=== PATIENT | male | born 1955 | race African-American/Black ===

== ENCOUNTER 2017-10-10 15:14 | Emergency (ER) | payer MEDICARE, MEDICAID ==
[~2017-10-10] VITALS: Ht 175.3 cm; Wt 74.0 kg
[~2017-10-10 15:14] MED LIST: ALLO100T PO; AMLO1CAP59 PO; ATOR20TA PO; KETO-23 PO; NORCO10T PO; TRAZ-91 PO
[2017-10-10 15:18] VITALS: BP 153/104
[2017-10-10] MEDS ORDERED: ibuprofen tablet 400 MG TABLET PO ONE (15:45)
== END 2017-10-10 16:00 | disposition home or self-care (01) ==
LOC: ER 15:14
DX: H92.02 Otalgia, left ear (principal); E78.00 Pure hypercholesterolemia, unspecified; I10 Essential (primary) hypertension; Z79.899 Other long term (current) drug therapy; Z98.890 Other specified postprocedural states
CPT/HCPCS: 99282

== ENCOUNTER 2023-05-24 20:01 | Emergency (ER) | payer MEDICARE, MEDICAID ==
[~2023-05-24] VITALS: Ht 175.3 cm; Wt 78.0 kg
[2023-05-24 21:21] VITALS: BP 119/76; PULSE 95; RESP 16; TEMP 97.9; O2SAT 96
== END 2023-05-25 00:32 | disposition left against medical advice (07) ==
LOC: ER 20:01
DX: M25.562 Pain in left knee (principal); Z53.21 Procedure and treatment not carried out due to patient leaving prior to being seen by health care provider
CPT/HCPCS: 99281

== ENCOUNTER 2025-04-06 11:03 | Emergency (ER) | payer OTHER ==
[~2025-04-06] VITALS: Ht 175.3 cm; Wt 76.5 kg
[2025-04-06 11:04] VITALS: BP 129/96; PULSE 74; RESP 16; O2SAT 99
[2025-04-06] MEDS ORDERED: COLC0.6C3 PO (11:57)
--- NOTE | 2025-04-06 11:58 | Physician Documentation ---
History of Present Illness ~ Chief Complaint: Toe pain Stated Complaint: FOOT PAIN Time Seen by MD: 11:39 OK to notify your PCP?: Yes Primary Medical Doctor: Matthew THOMAS Source: patient Mode of Arrival: POV Exam Limitations: no limitations HPI Reports left big toe pain at the MTP joint. No trauma to foot. Reports has gout flare-ups and this is started yesterday. He has had 4-5 flare-ups within the past 12 months. He does not take allopurinol on a daily basis. He reports that he is typically given colchicine in that works best. He also has a topical cream which he tried putting on the joint without any relief. Tetanus witin 5 years: Yes (3 years ago unk) Medication Reconciliation Allergies: Coded Allergies: No Known Allergies (Unverified , 04/06/25) Scheduled Allopurinol* (Allopurinol*), 100 MG PO DAILY, (Reported) Amlodipine Besylate/Benazepril 5/10 MG* (Amlodipine-Benazepril 5/10 MG*), 1 TAB PO DAILY, (Reported) Atorvastatin Calcium* (Lipitor*), 20 MG PO HS, (Reported) Colchicine (Colchicine), 1 CAP PO DAILY Ketorolac Tromethamine (Toradol), 10 MG PO TID Scheduled PRN Hydrocodone Bit/Acetaminophen 10/325 MG* ([place] 10/325 MG*), 1 TAB PO Q4H PRN Trazodone Hcl* (Trazodone Hcl*), 100 MG PO HS PRN, (Reported) Past Medical History Past Medical History: High Cholesterol, Hypertension, Gout Past Surgical History: colectomy, tonsillectomy Alcohol Use: Occasionally Drug Use: none Lives with: Family Lives In: Home Occupation: retired Review of Systems All Other Systems at this time: Reviewed and Negative Physical Exam Vital Signs: RN Vital Signs have been reviewed: Yes, Temperature: 98.0, Source: Oral, Heart Rate: 74, Respiratory Rate: 16, BP: 129/96, Pulse Oximetry: 99, Weight: 76.500 Oxygen Flow Rate: 0 Pulse Oximetry Reflects: adequate oxygenation Physical Exam General: Alert, no distress. HEENT: No injection, moist mucous membranes. Neck: Full range of motion. Respiratory: No respiratory distress, equal chest rise and fall. Lungs clear bilaterally Chest: No accessory muscle use. Cardiovascular: Regular rate and rhythm. Gastrointestinal: Nondistended. Extremities: Decreased range motion of left big toe. Tenderness and edema to Left MTP joint. Good CSM, good sensation, good pulses in left foot. Neurologic: Oriented x4. Psychiatric: Normal mood and affect. Skin: Normal color, warm and dry. Progress Results/Orders Results/Orders Orders - MARCELA ADAMS Colchicine Tablet (Colchicine Tablet) (04/06/25 12:00) Vital Signs 04/06/25 11:04 Temp 98.0 Pulse 74 Resp 16 B/P (MAP) 129/96 Pulse Ox 99 O2 Flow Rate 0 Medical Decision Making Additional information obtaine: old records Findings Has known gout flare-ups. Physical exam reveals left MTP pain and swelling. He reports that colchicine typically works for him. We gave the initial dose 1.2 mg while here in the department in the rest was sent to the pharmacy. He was given instructions that he can take the next tablet 1 hour after the initial tablets were given. He was advised to continue taking NSAIDs or using the gel for his toe. was also advised that starting allopurinol may be a good idea sin ce he has had many flare-ups in the past 12 months and talk to PCP. General Diff Dx:Considerations: Include: Other Knee Diff Dx:Considerations: Include: Other Ankle Diff Dx:Considerations: Include: Other Foot Diff Dx:Considerations: Include: Other Toe Diff Dx:Considerations: Include: Cellulitis, Contusion, Dislocation, Hematoma, Neurovascular injury, Subungual hematoma Departure Disposition: 01 HOME / SELF CARE / HOMELESS Impression: Primary Impression: Gouty arthritis of toe Condition: Stable Discharge Instructions: Gout Additional Instructions: You were given the initial dose of colchicine while here in the department. Please go to the pharmacy and order picker/assembler your prescription. You can take colchicine 1 hour after initial dose and then take once daily until the flare resolves. [facility] such [facility]. Return here for any new or worsening symptoms. Referrals: NO PRIMARY CARE PROVIDER (PCP) Prescriptions Colchicine (Colchicine) 0.6 Mg Capsule 1 CAP PO DAILY for 7 Days, #7 CAP 0 Refills Prov: MARCELA ADAMS 04/06/25 Education Educated: Patient Educated regarding: diagnosis, treatment, prognosis, need for follow up Additional Comment Medical Screen Exam This patient recieved a medical screening examination. After reviewing the individual's medical complaints with presenting symptoms and performing an appro priate physical examination, it was determined that no immediate life- threatening emergency medical condition is present. This individual is also not a women having contractions. Signature Scribe Signature: . Attestation: Scribed for Marcela Adams Jazz Singer by Marcela Agrawal NP . 04/06/25 12:01 Parts of this note were created using [email or web address] voice recognition software program. While efforts were made to correct any mistakes made by this voice recognition software program, nonsensical phrases may remain in this note. In addition, there may be errors and syntax, grammar, content and spelling. MARCELA ADAMS [facility] Apr 06, 2025 11:58
[2025-04-06 12:30] VITALS: TEMP 98
== END 2025-04-06 12:33 | disposition home or self-care (01) ==
LOC: ER 11:03
DX: M10.072 Idiopathic gout, left ankle and foot (principal); E78.00 Pure hypercholesterolemia, unspecified; I10 Essential (primary) hypertension; Z90.49 Acquired absence of other specified parts of digestive tract; Z90.89 Acquired absence of other organs
CPT/HCPCS: 99283